=== PATIENT | female | born 1965 | race Caucasian/White ===

== ENCOUNTER 2018-05-11 11:23 | Emergency (ER) | payer OTHER ==
[~2018-05-11] VITALS: Ht 165.1 cm; Wt 61.2 kg
[~2018-05-11 11:23] MED LIST: ACET-73 PO; LEVO88TA2 PO
[2018-05-11] MEDS ORDERED: KETOROLAC TROMETHAMINE 30 MG INJ ONE (11:55)
[2018-05-11] MEDS ORDERED: diphenhydrAMINE 50 MG/1 ML VIAL ONE (11:56)
[2018-05-11] MEDS ORDERED: METOCLOPRAMIDE HCL 10 MG/2 ML VIAL ONE (11:57)
[2018-05-11] MEDS ORDERED: KETOROLAC TROMETHAMINE 30 MG INJ IVP ONE (12:00)
[2018-05-11] MEDS ORDERED: METOCLOPRAMIDE HCL 10 MG/2 ML VIAL IV ONE (12:00)
[2018-05-11] MEDS ORDERED: diphenhydrAMINE 50 MG/1 ML VIAL IV ONE (12:00)
[2018-05-11] MEDS ORDERED: IV NORMAL SALINE 1000 ML BAG IV ONE (12:00)
--- NOTE | 2018-05-11 12:10 | NUR ---
PT IS IN ROOM # 2B. DR VAZQUEZ EVALUATED THE PT.
--- NOTE | 2018-05-11 12:46 | NUR ---
PT WAS D/C'D TO HOME. D/C INSTRUCTIONS GIVEN TO THE PT.
[2018-05-11 13:06] VITALS: BP 132/71
== END 2018-05-11 13:08 | disposition home or self-care (01) ==
LOC: ER 11:23
DX: G43.909 Migraine, unspecified, not intractable, without status migrainosus (principal); G24.3 Spasmodic torticollis; F17.200 Nicotine dependence, unspecified, uncomplicated; Z90.710 Acquired absence of both cervix and uterus; Z79.899 Other long term (current) drug therapy
CPT/HCPCS: 96374; 96375; 99283; J1200; J1885; J2765; A4663; J7030